=== PATIENT | male | born 1980 | race Caucasian/White ===

== ENCOUNTER 2016-05-05 05:48 | Emergency (ER) | payer BC ==
[~2016-05-05] VITALS: Ht 188 cm; Wt 147.1 kg
[~2016-05-05 05:48] MED LIST: ACTOS15 MG PO; ATARAX,VISTARIL50 MG PO; BACTRIM,SEPT1 TABLET PO; CLINDAMYCIN HC300 MG PO; ENDOCET 5-3251 EACH PO; Ecotrin PO; FIORICET 50-301 EACH PO; FLORASTOR250 MG PO; GLUCOPHAGE500 MG PO; INDOCIN25 MG PO; KEFLEX500 MG PO; METFORMIN HCL500 MG PO; NICOTINE PATCH1 EACH TD; NOHOMEMEDS; PREDNISONE50 MG PO; TYLENOL WITH C1 EACH PO; ULTRAM50 MG PO; VICODIN 5-3001 EACH PO
[2016-05-05 06:37] LABS: EOSINOPHIL (%) 2.3 % (0-5); EOSINOPHIL COUNT 0.1 K/uL (0-0.3); HEMATOCRIT 43.6 % (38.0-50.0); IMMATURE GRANULOCYTE (%) 0.3 % (0.0-0.7); IMMATURE GRANULOCYTE COUNT 0.2 K/uL; LYMPHOCYTE COUNT 2.2 K/uL (1.0-2.8); MCH 28.6 PG (29.0-34.0); MCHC 33.5 G/DL (30.0-36.0); MCV 85.5 FL (86-99); MEAN PLAT.VOLUME 10.8 uM^3 (9.0-12.4); MONOCYTE (%) 7.9 % (3-12); MONOCYTE COUNT 0.5 K/uL (0-0.8); NEUTROPHIL (%) 53.6 % (45-76); NEUTROPHIL COUNT 3.3 K/uL (1.8-6.4); PLATELET COUNT 124 K/uL (156-360); RBC DIS.WIDTH-CV 13.4 % (11.8-14.6); RBC DIS.WIDTH-SD 41.2 % (39-53); WHITE BLOOD COUNT 6.2 K/uL (4.1-10.2)
[2016-05-05 06:49] LABS: CHLORIDE 104 mEq/L (99-109); POTASSIUM 4.2 mEq/L (3.7-5.4); SODIUM 137 mEq/L (136-147)
[2016-05-05 06:51] LABS: GLUCOSE 387 mg/dL (70-99)
[2016-05-05 06:52] LABS: ANION GAP 10 MEQ/L (2-14)
[2016-05-05 06:53] LABS: TOTAL BILIRUBIN 0.5 mg/dL (0.0-1.0)
[2016-05-05 06:54] LABS: ALKALINE PHOSPHATASE 159 IU/L (3-129)
[2016-05-05 06:55] LABS: GFR ESTIMATE (CALCULATED) > 59 mL/min/
[2016-05-05 06:56] LABS: UREA NITROGEN (BUN) 14 mg/dL (9-23)
[2016-05-05] MEDS ORDERED: METFORMIN HCL500 M1 PO (08:19)
[2016-05-05] MEDS ORDERED: TYLENOL WITH C1 EACH PO (08:49)
[2016-05-05 09:14] VITALS: BP 131/77
== END 2016-05-05 09:16 | disposition home or self-care (01) ==
LOC: EME 05:48
PROVIDERS: Emergency Medicine
DX: M77.32 Calcaneal spur, left foot (principal); M79.605 Pain in left leg; E11.9 Type 2 diabetes mellitus without complications; I10 Essential (primary) hypertension; Z87.891 Personal history of nicotine dependence
CPT/HCPCS: 73630; 80053; 81003; 83605; 85025; 93971; 99281; 99284

== ENCOUNTER 2016-07-26 22:45 | Emergency (ER) | payer BC ==
[~2016-07-26] VITALS: Ht 188 cm; Wt 145.0 kg
[~2016-07-26 22:45] MED LIST changes: +METFORMIN HCL500 M1 PO
[2016-07-26] MEDS ORDERED: KEFLEX500 MG PO (23:30)
[2016-07-26 23:51] VITALS: BP 151/84
== END 2016-07-26 23:52 | disposition home or self-care (01) ==
LOC: EXP 22:45 → EME 22:45 → EXP 23:52
DX: S81.811A Laceration without foreign body, right lower leg, initial encounter (principal); L03.115 Cellulitis of right lower limb; W26.8XXA Contact with other sharp object(s), not elsewhere classified, initial encounter; E11.9 Type 2 diabetes mellitus without complications
CPT/HCPCS: 87070; 87075; 87205; 99281; 99284; J0696

== ENCOUNTER 2017-02-09 03:41 | Emergency (ER) | payer BC ==
[~2017-02-09] VITALS: Ht 188 cm; Wt 143.0 kg
[2017-02-09 03:58] LABS: ADD MIUA? NO; BILIRUBIN NEGATIVE; BLOOD NEGATIVE; COLOR COLORLESS ((YELLOW)); GLUCOSE (STRIP) >=500; KETONES NEGATIVE; LEUKOCYTES NEGATIVE; NITRITE NEGATIVE; PROTEIN (STRIP) NEGATIVE; UCUL ADDED? NO; UROBILINOGEN 0.2 MG/DL (0.2-1.0)
[2017-02-09 04:13] LABS: HEMATOCRIT 46.4 % (38.0-50.0); MCH 28.2 PG (29.0-34.0); MCHC 33.2 G/DL (30.0-36.0); PLATELET COUNT 123 K/uL (156-360); RBC DIS.WIDTH-CV 13.3 % (11.8-14.6); RBC DIS.WIDTH-SD 41.4 % (39-53); RED BLOOD COUNT 5.46 M/uL (4.00-5.50); WHITE BLOOD COUNT 7.4 K/uL (4.1-10.2)
[2017-02-09 04:21] LABS: CHLORIDE 101 mEq/L (99-109); POTASSIUM 4.3 mEq/L (3.7-5.4); SODIUM 136 mEq/L (136-147)
[2017-02-09 04:24] LABS: ANION GAP 12 MEQ/L (2-14)
[2017-02-09 04:25] LABS: TOTAL BILIRUBIN 0.7 mg/dL (0.0-1.0)
[2017-02-09 04:26] LABS: GLUCOSE 589 mg/dL (70-99)
[2017-02-09 04:27] LABS: ALKALINE PHOSPHATASE 195 IU/L (3-129); GFR ESTIMATE (CALCULATED) > 59 mL/min/
[2017-02-09 04:31] LABS: UREA NITROGEN (BUN) 16 mg/dL (9-23)
[2017-02-09 05:16] LABS: POINT-OF-CARE METER ID UU13113702
[2017-02-09 05:34] LABS: C-REACTIVE PROTEIN 7.8 MG/L (0-10)
[2017-02-09] MEDS ORDERED: METFORMIN HCL500 MG PO (05:38)
[2017-02-09 06:02] VITALS: BP 166/116
[2017-02-09 09:35] LABS: POINT-OF-CARE METER ID UU13113702
== END 2017-02-09 06:03 | disposition home or self-care (01) ==
LOC: EME 03:41
PROVIDERS: Emergency Medicine
DX: E11.65 Type 2 diabetes mellitus with hyperglycemia (principal); R10.84 Generalized abdominal pain; Z79.84 Long term (current) use of oral hypoglycemic drugs; I10 Essential (primary) hypertension
CPT/HCPCS: 80053; 81003; 82948; 85027; 86140; 99281; 99285; J2405; J7030

== ENCOUNTER 2017-02-12 14:37 | Emergency (ER) | payer BC ==
[~2017-02-12] VITALS: Ht 188 cm; Wt 139.8 kg
[2017-02-12 14:59] LABS: POINT-OF-CARE METER ID UU13113778
[2017-02-12 15:17] LABS: HEMATOCRIT 44.3 % (38.0-50.0); MCH 28.7 PG (29.0-34.0); MCHC 33.6 G/DL (30.0-36.0); MCV 85.2 FL (86-99); MEAN PLAT.VOLUME 10.6 uM^3 (9.0-12.4); PLATELET COUNT 118 K/uL (156-360); RBC DIS.WIDTH-CV 13.1 % (11.8-14.6); WHITE BLOOD COUNT 5.9 K/uL (4.1-10.2)
[2017-02-12 15:32] LABS: CHLORIDE 105 mEq/L (99-109); POTASSIUM 3.8 mEq/L (3.7-5.4); SODIUM 138 mEq/L (136-147)
[2017-02-12 15:34] LABS: GLUCOSE 352 mg/dL (70-99)
[2017-02-12 15:36] LABS: ANION GAP 11 MEQ/L (2-14); TOTAL BILIRUBIN 0.9 mg/dL (0.0-1.0)
[2017-02-12 15:38] LABS: GFR ESTIMATE (CALCULATED) > 59 mL/min/
[2017-02-12 15:39] LABS: UREA NITROGEN (BUN) 12 mg/dL (9-23)
[2017-02-12 15:40] LABS: ALKALINE PHOSPHATASE 102 IU/L (3-129)
[2017-02-12 15:41] LABS: LIPASE 70 U/L (1.0-51.0)
[2017-02-12 19:09] LABS: ADD MIUA? NO; BILIRUBIN NEGATIVE; BLOOD NEGATIVE; COLOR YELLOW ((YELLOW)); GLUCOSE (STRIP) >=500; KETONES NEGATIVE; LEUKOCYTES NEGATIVE; NITRITE NEGATIVE; PROTEIN (STRIP) NEGATIVE; SPECIFIC GRAVITY 1.029 (1.000-1.030); UCUL ADDED? NO; UROBILINOGEN 0.2 MG/DL (0.2-1.0)
[2017-02-12 19:28] LABS: POINT-OF-CARE METER ID UU13113800
[2017-02-12] MEDS ORDERED: LANCETS1 EACH MC (20:16)
[2017-02-12] MEDS ORDERED: METFORMIN HCL1000 MG PO (20:27)
[2017-02-12] MEDS ORDERED: TEST STRIPS MC (20:29)
[2017-02-12] MEDS ORDERED: BENTYL20 MG PO (20:29)
[2017-02-12 20:57] VITALS: BP 168/95
== END 2017-02-12 20:59 | disposition home or self-care (01) ==
LOC: EME 14:37
PROVIDERS: Physician Assistant
DX: R10.84 Generalized abdominal pain (principal); E86.0 Dehydration; E11.65 Type 2 diabetes mellitus with hyperglycemia; Z79.84 Long term (current) use of oral hypoglycemic drugs; M54.5 Low back pain; K76.0 Fatty (change of) liver, not elsewhere classified
CPT/HCPCS: 74177; 80053; 81003; 82010; 82800; 82948; 83605; 83690; 85027; 99281; 99285; J7030

== ENCOUNTER 2017-05-29 05:47 | Emergency (ER) | payer BC ==
[~2017-05-29] VITALS: Ht 188 cm; Wt 137.6 kg
[~2017-05-29 05:47] MED LIST changes: +BENTYL20 MG PO; +LANCETS1 EACH MC; +METFORMIN HCL1000 MG PO; +MOTRIN800 MG PO; +NORCO 7.5/321 TABLET PO; +TEST STRIPS MC
[2017-05-29] MEDS ORDERED: AUGMENTIN875 MG PO (07:40)
[2017-05-29] MEDS ORDERED: ABREVA2 GM TP (07:49)
[2017-05-29 07:56] VITALS: BP 161/99
== END 2017-05-29 08:06 | disposition home or self-care (01) ==
LOC: EME 05:47
DX: J32.9 Chronic sinusitis, unspecified (principal); B00.1 Herpesviral vesicular dermatitis; E11.9 Type 2 diabetes mellitus without complications; Z79.84 Long term (current) use of oral hypoglycemic drugs; Z72.0 Tobacco use; Z88.8 Allergy status to other drugs, medicaments and biological substances
CPT/HCPCS: 99281; 99284

== ENCOUNTER 2017-06-19 07:08 | Emergency (ER) | payer BC ==
[~2017-06-19] VITALS: Ht 188 cm; Wt 136.0 kg
[~2017-06-19 07:08] MED LIST changes: +ABREVA2 GM TP; +AUGMENTIN875 MG PO
[2017-06-19 07:49] LABS: BASOPHIL (%) 0.4 % (0-1); EOSINOPHIL (%) 1.8 % (0-5); EOSINOPHIL COUNT 0.1 K/uL (0-0.3); HEMATOCRIT 45.3 % (38.0-50.0); HEMOGLOBIN 15.4 G/DL (12.5-16.6); IMMATURE GRANULOCYTE (%) 0.2 % (0.0-0.7); LYMPHOCYTE COUNT 1.9 K/uL (1.0-2.8); MCH 28.8 PG (29.0-34.0); MCV 84.7 FL (86-99); MONOCYTE (%) 9.9 % (3-12); MONOCYTE COUNT 0.5 K/uL (0-0.8); NEUTROPHIL (%) 52.7 % (45-76); NEUTROPHIL COUNT 2.9 K/uL (1.8-6.4); PLATELET COUNT 129 K/uL (156-360); RBC DIS.WIDTH-CV 13.1 % (11.8-14.6); RBC DIS.WIDTH-SD 40.3 % (39-53); RED BLOOD COUNT 5.35 M/uL (4.00-5.50); WHITE BLOOD COUNT 5.5 K/uL (4.1-10.2)
[2017-06-19 07:55] LABS: CARBON DIOXIDE (BICARBONATE) 29.3 MEQ/L (20-31)
[2017-06-19 08:13] LABS: CHLORIDE 103 mEq/L (99-109); POTASSIUM 3.9 mEq/L (3.7-5.4); SODIUM 137 mEq/L (136-147)
[2017-06-19 08:18] LABS: CREATININE 0.8 mg/dL (0.6-1.3); GFR ESTIMATE (CALCULATED) > 59 mL/min/ (58.99-99999); GLUCOSE 428 mg/dL (70-99)
[2017-06-19 08:19] LABS: UREA NITROGEN (BUN) 11 mg/dL (9-23)
[2017-06-19 08:22] LABS: APPEARANCE CLEAR ((CLEAR)); BILIRUBIN NEGATIVE; BLOOD NEGATIVE; COLOR STRAW ((YELLOW)); GLUCOSE (STRIP) >=500; KETONES NEGATIVE; LEUKOCYTES NEGATIVE; NITRITE NEGATIVE; PROTEIN (STRIP) 30; SPECIFIC GRAVITY 1.027 (1.000-1.030); UCUL ADDED? NO; UROBILINOGEN 0.2 MG/DL (0.2-1.0)
[2017-06-19 11:03] LABS: ALKALINE PHOSPHATASE 119 IU/L (3-129); ALT (GPT) 35 IU/L (3-49); AST (GOT) 22 IU/L (2-34); DIRECT BILIRUBIN 0.2 mg/dL (0.0-0.3); TOTAL BILIRUBIN 0.7 MG/DL (0.0-1.0); TOTAL PROTEIN 6.7 G/DL (6.4-8.3)
[2017-06-19 11:48] VITALS: BP 144/83
== END 2017-06-19 12:15 | disposition home or self-care (01) ==
LOC: EME 07:08
PROVIDERS: Nurse Practitioner Family
DX: R10.31 Right lower quadrant pain (principal); E11.65 Type 2 diabetes mellitus with hyperglycemia; F17.200 Nicotine dependence, unspecified, uncomplicated; K74.60 Unspecified cirrhosis of liver; K76.0 Fatty (change of) liver, not elsewhere classified; R16.2 Hepatomegaly with splenomegaly, not elsewhere classified; N28.9 Disorder of kidney and ureter, unspecified; I10 Essential (primary) hypertension; Z79.84 Long term (current) use of oral hypoglycemic drugs; Z88.8 Allergy status to other drugs, medicaments and biological substances
CPT/HCPCS: 74177; 80048; 80076; 81003; 82010; 82803; 82948; 85025; 99281; 99285; J2405; J3010; J7030

== ENCOUNTER 2017-12-13 14:51 | Emergency (ER) | payer BC ==
[~2017-12-13] VITALS: Ht 188 cm; Wt 128.1 kg
[2017-12-13] MEDS ORDERED: MOTRIN800 MG PO (16:28)
[2017-12-13] MEDS ORDERED: FIORICET 50-301 EAC1 PO (16:28)
[2017-12-13 17:32] VITALS: BP 148/87
== END 2017-12-13 18:16 | disposition home or self-care (01) ==
LOC: EME 14:51
DX: S06.0X0A Concussion without loss of consciousness, initial encounter (principal); W22.09XA Striking against other stationary object, initial encounter; E11.9 Type 2 diabetes mellitus without complications; Z88.8 Allergy status to other drugs, medicaments and biological substances
CPT/HCPCS: 99281; 99284; J0780; J1200; J1885; J7030